=== PATIENT | female | born 2000 | race African-American/Black ===

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

== ENCOUNTER 2020-11-14 11:55 | Emergency (ER) | payer SELFPAY ==
[2020-11-14] MEDS ORDERED: EPINEPHrine 1 MG/10 ML Abboject SYRINGE ONE (13:41)
[2020-11-14] MEDS ORDERED: Lidocaine 1% w/Epinephrine 1:100K 20 ML VIAL ONE (13:42)
== END 2020-11-14 14:11 | disposition home or self-care (01) ==
LOC: ERS 11:55
DX: L02.211 Cutaneous abscess of abdominal wall (principal); L73.2 Hidradenitis suppurativa; L02.214 Cutaneous abscess of groin
CPT/HCPCS: 99283; J0171

== ENCOUNTER 2021-02-10 | Emergency (ER) | payer SELFPAY | END 2021-02-10 10:34 | disposition left against medical advice (07) | DX: Z53.21 Procedure and treatment not carried out due to patient leaving prior to being seen by health care provider (principal) ==

== ENCOUNTER 2024-04-19 09:48 | Emergency (ER) | payer SELFPAY ==
[2024-04-19] MEDS ORDERED: Bupivacaine PF 0.5% 30 ML VIAL ONE (12:06)
[2024-04-19] MEDS ORDERED: Bupivacaine 0.25% 10 ML VIAL ONE (12:08)
== END 2024-04-19 13:38 | disposition home or self-care (01) ==
LOC: ERS 09:48
DX: L02.416 Cutaneous abscess of left lower limb (principal); L03.116 Cellulitis of left lower limb; L73.2 Hidradenitis suppurativa
CPT/HCPCS: 10060; J0665